=== PATIENT | male | born 1980 | race Caucasian/White ===

== ENCOUNTER 2017-01-28 16:34 | Inpatient (IN) | payer BC ==
[2017-01-28 16:59] VITALS: BMI 27.7
--- NOTE | 2017-01-28 17:27 | HP ---
COWS - Scale Resting Pulse: 0= [place] 80 or Below Sweatin= Chills/Flushing Restless Observation: 3= Extraneous Movement Pupil Size: 0= Normal to Room Light Bone or Joint Aches: 2= Severe Diffuse Aches Runny Nose/ Eye Tearin= Runny Nose/Eyes GI Upset > 30mins: 2= Nausea/Diarrhea Tremor Observation: 2= Slight Tremor Visible Yawning Observation: 0= None Anxiety or Irritability: 2=Irritable/Anxious Goose Flesh Skin: 3=Piloerection COWS Score: 17 Admission ROS S - HPI Chief Complaint: withdrawal sx last detox [facility] 12/11/16 Allergies/Adverse Reactions: Allergies Allergy/AdvReac Type Severity Reaction Status Date / Time No Known Allergies Allergy Verified 01/28/17 15:58 History of Present Illness: 36 years old male with long history of heroin nicotine dependence denies medical issue has depression denies suicidal denies homocidal is admitted to detox Exam Limitations: No Limitations - Ebola screening Have you traveled outside of the country in the last 21 days: No Have you had contact with anyone from an Ebola affected area: No Have you been sick,other than usual withdrawal symptoms: No Do you have a fever: No - Review of Systems Constitutional: Night Sweats, Changes in sleep, Weight Stable EENT: reports: Nose Congestion Respiratory: reports: No Symptoms reported Cardiac: reports: No Symptoms Reported GI: reports: Nausea, Poor Fluid Intake, Indigestion, Abdominal cramping : reports: Other (history of kidney stone 2010 resolved) Musculoskeletal: reports: Back Pain, Joint Pain, Muscle Pain, Neck Pain Integumentary: reports: No Symptoms Reported Neuro: reports: Tremors Endocrine: reports: No Symptoms Reported Hematology: reports: No Symptoms Reported Psychiatric: reports: Judgement Intact, Orientated x3, Depressed Other Systems: Reviewed and Negative Patient History - Patient Medical History Hx Anemia: No Hx Asthma: No Hx Chronic Obstructive Pulmonary Disease (COPD): No Hx Cancer: No Hx Cardiac Disorders: No Hx Congestive Heart Failure: No Hx Hypertension: No Hx Hypercholesterolemia: No Hx Pacemaker: No HX Cerebrovascular Accident: No Hx Seizures: No Hx Dementia: No Hx Diabetes: No Hx Gastrointestinal Disorders: Yes Hx Liver Disease: No Hx Genitourinary Disorders: No Hx Sexually Transmitted Disorders: No Hx Renal Disease (ESRD): No Hx Thyroid Disease: No Hx Human Immunodeficiency Virus (HIV): No Hx Hepatitis C: No Hx Depression: Yes Hx Suicide Attempt: No Hx Bipolar Disorder: No Hx Schizophrenia: No - Patient Surgical History Past Surgical History: No - PPD History Previous Implant?: Yes Documented Results: Negative w/o proof Implanted On Prior [facility] Admission?: No PPD to be Administered?: Yes - Smoking Cessation Smoking history: Current every day smoker Have you smoked in the past 12 months: Yes Aproximately how many cigarettes per day: 20 Cigars Per Day: 0 Hx Chewing Tobacco Use: No Initiated information on smoking cessation: Yes 'Breaking Loose' booklet given: 01/28/17 - Substance & Tx. History Hx Alcohol Use: No Hx Substance Use: Yes Substance Use Type: Heroin Hx Substance Use Treatment: Yes (12/11/16-12/28/16 detox [facility]) - Substances Abused Heroin Route: Inhalation Frequency: Daily Amount used: 20 bags Age of first use: 19 Date of Last Use: 01/27/17 Family Disease History - Family Disease History Family History: Unremarkable Admission Physical Exam S - Vital Signs Vital Signs: Vital Signs - 24 hr 01/28/17 16:58 Temperature 97.4 F L Pulse Rate 79 Respiratory 20 Rate Blood Pressure 138/86 - Physical General Appearance: Yes: Appropriately Dressed, Moderate Distress, Tremorous, Irritable, Sweating, Anxious HEENTM: Yes: Hearing grossly Normal, Normal ENT Inspection, Normocephalic, Normal Voice Respiratory: Yes: Chest Non-Tender, Lungs Clear, Normal Breath Sounds, No Respiratory Distress, No Accessory Muscle Use Neck: Yes: Supple, Trachea in good position Cardiology: Yes: Regular Rhythm, Regular Rate, S1, S2 Abdominal: Yes: Non Tender, Soft Genitourinary: Yes: Within Normal Limits Back: Yes: Normal Inspection Musculoskeletal: Yes: full range of Motion, Gait Steady, Back pain, Muscle Pain Extremities: Yes: Normal Inspection (multiple tattoo, chronic redness spots), Normal Range of Motion, Non-Tender, Tremors Neurological: Yes: Fully Oriented, Alert, Motor Strength 5/5, Normal Response, Depressed Affect Integumentary: Yes: Warm Lymphatic: Yes: Within Normal Limits - Diagnostic (1) Opioid dependence with withdrawal Current Visit: Yes Status: Acute (2) GERD (gastroesophageal reflux disease) Current Visit: Yes Status: Chronic Qualifiers: Esophagitis presence: without esophagitis Qualified Code(s): K21.9 - Gastro-esophageal reflux disease without esophagitis (3) Nicotine dependence Current Visit: Yes Status: Acute Qualifiers: Nicotine product type: cigarettes Substance use status: in withdrawal Qualified Code(s): F17.213 - Nicotine dependence, cigarettes, with withdrawal (4) Depression (emotion) Current Visit: Yes Status: Suspected Qualifiers: Depression Type: dysthymia Qualified Code(s): F34.1 - Dysthymic disorder Cleared for Admission [facility] - Detox or Rehab [facility] Level of Care: Medically Managed Detox Regimen/Protocol: Methadone [facility] Breath Alcohol Content Breath Alcohol Content: 0 Urine Drug Screen - Results Urine Drug Screen Results: DEVANTE-Cocaine, OPI-Opiates
[2017-01-28] MEDS ORDERED: MENTHOL/PHENOL 1 EACH UD MM PRN (17:30)
[2017-01-28] MEDS ORDERED: P-EPHED 60MG/TRIPROLIDI 2.5MG TABLET PO PRN (17:30)
[2017-01-28] MEDS ORDERED: MAGNESIUM HYDROX 2400MG/30ML ORAL SUSPENSION 30 ML CUP PO PRN (17:30)
[2017-01-28] MEDS ORDERED: MAG HYDROX/AL HYDROX/SIMETH 30 ML UNIT-DOSE CUP PO PRN (17:30)
[2017-01-28] MEDS ORDERED: guaiFENesin/D-METHORPHAN HB 10 ML UNIT-DOSE CUPS PO PRN (17:30)
[2017-01-28] MEDS ORDERED: MAGNESIUM CITRATE 300 ML BOTTLE PO PRN (17:30)
[2017-01-28] MEDS ORDERED: ACETAMINOPHEN 325 MG TABLET (FP) PO PRN (17:30)
[2017-01-28] MEDS ORDERED: LOPERAMIDE HCL 2 MG CAPSULE PO PRN (17:30)
[2017-01-28] MEDS ORDERED: diphenhydrAMINE HCL 50 MG CAPSULE PO PRN (17:30)
[2017-01-28] MEDS ORDERED: METHADONE HCL 10 MG TABLET (FOR DETOX USE ONLY) PO ONE ×2 (18:30→23:00)
[2017-01-28] MEDS: diazePAM 5 MG TABLET PO PRN (18:41)
[2017-01-28] MEDS: NICOTINE POLACRILEX 4 MG GUM BC PRN (20:07)
[2017-01-28] MEDS: RANITIDINE HCL 150 MG TABLET (FP) PO SCH (22:08)
[2017-01-28] MEDS: THIAMINE HCL 100 MG TABLET (FP) PO SCH (22:09)
[2017-01-28 22:25] LABS: URINE APPEARANCE CLEAR; URINE BILIRUBIN NEGATIVE (NEGATIVE); URINE BLOOD NEGATIVE (NEGATIVE); URINE COLOR LTYELLOW; URINE GLUCOSE (UA) NEGATIVE (NEGATIVE); URINE KETONE NEGATIVE (NEGATIVE); URINE LEUK ESTERASE NEGATIVE (NEGATIVE); URINE NITRITE NEGATIVE (NEGATIVE); URINE PROTEIN NEGATIVE (NEGATIVE); URINE UROBILINOGEN NEGATIVE E.U./dl (0.2-1.0)
--- NOTE | 2017-01-29 09:16 | CONSULT ---
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 Substance Abuse History: Consistent with self-report of recent use of cocaine/ heroin use on 01/27/17.Patient admits to spending 200 dollars/day on heroin ( onset of abuse at age 25) via snorting .Sporadic recreational use of cocaine ( snorting) since age 16.Mr Arias reportedly smokes one pack of cigarettes daily (started at age 9). Medical History: Benign.Patient endorses good general health. Psychiatric History: No reported history of psychiatric hospitalizations.Mr Arias reports past treatment with psychostimulants (ritalin at age 10 and adderall in recent years until he stopped a few months ago).Was diagnosed with ADHD.Used to see a psychiatrist in his local town of [facility].Patient denies history of suicide attempts. Physical/Sexual Abuse/Trauma History: Patient denies. Additional Comment: Urine Drug Screen Results: positive for cocaine and opiates. Mental Status Exam - Mental Status Exam Alert and Oriented to: Time, Place, Person Cognitive Function: Good Patient Appearance: Well Groomed (tattoos on both forearms) Mood: Hopeful Affect: Appropriate, Normal Range Patient Behavior: Appropriate (well mannered), Cooperative Speech Pattern: Clear, Appropriate Voice Loudness: Normal Thought Process: Goal Oriented Thought Disorder: Not Present Hallucinations: Denies Suicidal Ideation: Denies Homicidal Ideation: Denies Insight/Judgement: Fair Sleep: Poorly Appetite: Good Muscle strength/Tone: Normal Gait/Station: Other Psychiatric Findings - Problem List ([place] 1, 2,3) (1) Opioid dependence with withdrawal Current Visit: Yes Status: Acute (2) Cocaine dependence Current Visit: Yes Status: Acute (3) Nicotine dependence Current Visit: Yes Status: Acute Qualifiers: Nicotine product type: cigarettes Substance use status: in withdrawal Qualified Code(s): F17.213 - Nicotine dependence, cigarettes, with withdrawal (4) ADHD (attention deficit hyperactivity disorder) Current Visit: No Status: Chronic Comment: By history.Non-adherent to medications. (5) GERD (gastroesophageal reflux disease) Current Visit: Yes Status: Chronic Qualifiers: Esophagitis presence: without esophagitis Qualified Code(s): K21.9 - Gastro-esophageal reflux disease without esophagitis (6) Insomnia Current Visit: Yes Status: Acute - Initial Treatment Plan Initial Treatment Plan: Psychoeducation provided in this initial session.Detoxification in progress.[facility] report is reviewed and appreciated.Patient indicates previous treatment (effective) with trazodone 100 mg/hs to address insomnia.Wishes to resume same at [address].Made aware of the potential for priapism and instructed to stop that drug/seek immediate medical attention if occurrence of erectile abnormalities (painful/prolonged erection) .Information is aknowledged by the patient.Consent (verbal) given.Trazodone 100 mg po hs.Ordered.Monitor progress.
[2017-01-29] MEDS ORDERED: LIDOCAINE VISCOUS 2% ORAL/TOP 20 ML UNIT-DOSE CUP MM PRN (09:33)
--- NOTE | 2017-01-29 09:35 | PN ---
[facility] COWS - Scale Resting Pulse: 0= [place] 80 or Below Sweatin= Chills/Flushing Restless Observation: 1= Difficult to Sit Still Pupil Size: 0= Normal to Room Light Bone or Joint Aches: 2= Severe Diffuse Aches Runny Nose/ Eye Tearin= Nasal Congestion GI Upset > 30mins: 2= Nausea/Diarrhea Tremor Observation of Outstretched Hands: 2= Slight Tremor Visible Yawning Observation: 1= 1-2x During Session Anxiety or Irritability: 2=Irritable/Anxious Goose Flesh Skin: 3=Piloerection COWS Score: 15 BHS Progress Note (SOAP) Subjective: Interrupted sleep, Body Aches, Lower Back Ache, Sweating, Diarrhea, Oral discomfort (pt. reports that tbhis is chronic condition and that he is awaiting dental surgery to correct). Objective: PT. A & O X 3, OBSERVED AMBULATING ON UNIT. NO ACUTE DISTRESS. PT. DENIES CHEST PAIN. 01/29/17 09:37 Vital Signs Temperature 96.3 F L 01/29/17 09:01 Pulse Rate 79 01/29/17 09:01 Respiratory Rate 16 01/29/17 09:01 Blood Pressure 124/84 01/29/17 09:01 O2 Sat by Pulse Oximetry (%) Laboratory Tests 01/28/17 21:15 Urine Color Ltyellow Urine Appearance Clear Urine pH 6.0 Urine Protein Negative Urine Glucose (UA) Negative Urine Ketones Negative Urine Blood Negative Urine Nitrite Negative Urine Bilirubin Negative Urine Urobilinogen Negative Ur Leukocyte Esterase Negative US RESULTS NOTED. OTHER LAB RESULTS PENDING. Assessment: 01/29/17 09:38 WITHDRAWAL SYMPTOMS. Plan: CONTINUE DETOX. VISCOUS LIDOCAINE SWISH AND SPIT PRN / GARGLE WITH WARM SALT WATER FOR ORAL PAIN. PT. ADVISED TO FOLLOW-UP WITH DENTIST FOR DENTAL EXAM AFTER DISCHARGE FROM DETOX.
[2017-01-29] MEDS ORDERED: METHADONE HCL 10 MG TABLET (FOR DETOX USE ONLY) PO ONE (10:00)
[2017-01-29 10:03] LABS: MCH 29.2 pg (25.7-33.7); MCHC 33.4 g/dl (32.0-35.9); MEAN CELL VOLUME 87.4 fl (80-96); MEAN PLT VOLUME 7.7 fl (7.5-11.1); PLATELET COUNT 239 K/MM3 (134-434); RDW 14.4 % (11.9-15.9); WHITE BLOOD COUNT 8.5 K/mm3 (4.0-10.0)
[2017-01-29] MEDS: RANITIDINE HCL 150 MG TABLET (FP) PO SCH ×2 (10:05→22:04)
[2017-01-29] MEDS: PRENATAL VITAMINS W/ FOLIC ACID TABLET (FP) PO SCH (10:05)
[2017-01-29] MEDS: diazePAM 5 MG TABLET PO PRN ×4 (10:06→22:03)
[2017-01-29 10:12] LABS: ANION GAP 5 (8-16); CALCIUM 8.2 mg/dL (8.5-10.1); CO2 28 mmol/L (21-32); GLUCOSE,RANDOM 88 mg/dL (74-106)
[2017-01-29 10:17] LABS: ALK PHOS 78 U/L (45-117); BILIRUBIN,TOTAL 0.2 mg/dL (0.2-1.0); CREATININE 0.8 mg/dL (0.7-1.3); SGOT/AST 16 U/L (15-37); SGPT/ALT 23 U/L (12-78); TOT PROT 5.8 g/dl (6.4-8.2)
[2017-01-29] MEDS: NICOTINE 21 MG/24 HOURS TOPICAL PATCH TD PRN (12:30)
[2017-01-29] MEDS: NICOTINE POLACRILEX 4 MG GUM BC PRN ×2 (12:30→18:12)
--- NOTE | 2017-01-29 16:22 | PN ---
[facility] Progress Note Note: Received report from Ms. Remy Ratliff RN that patient had been found to be smoking a cigarette in his room. When discussing matter with patient, he admitted that he opened his bedroom window after he saw a person in the parking lot of the building smoking. He then asked that person to "throw a cigarette up to him so that he could take a few drags." After discussion and consultation with Dr. Ervin MD, Counselor Brittany Sawyer, and Ms. Remy Ratliff RN, patient given Final Warning that if is he is caught smoking on unit again at any time during the remainder of admission, he will immediately be discharged from the unit. Patient verbalized understanding of warning and agreed to comply with Unit rules / regulations, including No-Smoking policy, going forward. Patient currently prescribed daily Nicoderm Patch and Nicorette Gum PRN to help reduce nicotine cravings. Member of Engineering staff came to patient's room to inspect bedroom window to ensure that it is not broken and functioning properly. Parish Nunez NP
--- NOTE | 2017-01-29 17:17 | EKG ---
Test Reason : Blood Pressure : / mmHG Vent. Rate : 071 BPM Atrial Rate : 071 BPM P-R Int : 140 ms QRS Dur : 088 ms QT Int : 378 ms P-R-T Axes : 040 057 040 degrees QTc Int : 410 ms NORMAL SINUS RHYTHM NORMAL ECG NO PREVIOUS ECGS AVAILABLE Confirmed by NO CARROLL MD ([id number]) on 01/29/2017 5:17:18 PM Referred By: Confirmed By:NO CARROLL MD
[2017-01-29] MEDS: traZODone HCL 100 MG TABLET (FP) PO SCH (22:04)
[2017-01-29] MEDS: THIAMINE HCL 100 MG TABLET (FP) PO SCH (22:04)
[2017-01-30] MEDS ORDERED: METHADONE HCL 5 MG TABLET (FOR DETOX USE ONLY) PO ONE (10:00)
[2017-01-30] MEDS: diazePAM 5 MG TABLET PO PRN ×4 (10:01→22:05)
[2017-01-30] MEDS: RANITIDINE HCL 150 MG TABLET (FP) PO SCH ×2 (10:01→22:04)
[2017-01-30] MEDS: NICOTINE 21 MG/24 HOURS TOPICAL PATCH TD PRN (10:01)
[2017-01-30] MEDS: PRENATAL VITAMINS W/ FOLIC ACID TABLET (FP) PO SCH (10:01)
[2017-01-30] MEDS: NICOTINE POLACRILEX 4 MG GUM BC PRN (10:01)
--- NOTE | 2017-01-30 10:31 | PN ---
S COWS - Scale Resting Pulse: 0= [place] 80 or Below Sweatin= Chills/Flushing Restless Observation: 1= Difficult to Sit Still Pupil Size: 0= Normal to Room Light Bone or Joint Aches: 2= Severe Diffuse Aches Runny Nose/ Eye Tearin= None GI Upset > 30mins: 1= Stomach Cramp Tremor Observation of Outstretched Hands: 0= None Yawning Observation: 2= >3x During Session Anxiety or Irritability: 2=Irritable/Anxious Goose Flesh Skin: 3=Piloerection COWS Score: 12 BHS Progress Note (SOAP) Subjective: Fatigue, Sweating. Objective: PT. A & O X 3, OBSERVED AMBULATING ON UNIT. NO ACUTE DISTRESS. 01/30/17 10:27 Vital Signs Temperature 97.1 F L 01/30/17 09:02 Pulse Rate 75 01/30/17 09:02 Respiratory Rate 18 01/30/17 09:02 Blood Pressure 134/95 01/30/17 09:02 O2 Sat by Pulse Oximetry (%) Laboratory Tests 01/28/17 01/29/17 01/29/17 21:15 06:30 06:30 WBC 8.5 RBC 4.52 Hgb 13.2 Hct 39.6 MCV 87.4 MCH 29.2 MCHC 33.4 RDW 14.4 Plt Count 239 MPV 7.7 Sodium 142 Potassium 4.6 Chloride 109 H Carbon Dioxide 28 Anion Gap 5 L BUN 22 H Creatinine 0.8 Creat Clearance w eGFR > 60 Random Glucose 88 Calcium 8.2 L Total Bilirubin 0.2 AST 16 ALT 23 Alkaline Phosphatase 78 Total Protein 5.8 L Albumin 3.0 L Urine Color Ltyellow Urine Appearance Clear Urine pH 6.0 Ur Specific [place] 1.020 Urine Protein Negative Urine Glucose (UA) Negative Urine Ketones Negative Urine Blood Negative Urine Nitrite Negative Urine Bilirubin Negative Urine Urobilinogen Negative Ur Leukocyte Esterase Negative RPR Titer 01/29/17 06:30 WBC RBC Hgb Hct MCV MCH MCHC RDW Plt Count MPV Sodium Potassium Chloride Carbon Dioxide Anion Gap BUN Creatinine Creat Clearance w eGFR Random Glucose Calcium Total Bilirubin AST ALT Alkaline Phosphatase Total Protein Albumin Urine Color Urine Appearance Urine pH Ur Specific [place] Urine Protein Urine Glucose (UA) Urine Ketones Urine Blood Urine Nitrite Urine Bilirubin Urine Urobilinogen Ur Leukocyte Esterase RPR Titer Nonreactive LABS NOTED. Assessment: 01/30/17 10:28 WITHDRAWAL SYMPTOMS. Plan: CONTINUE DETOX. INCREASE PO FLUID INTAKE.
[2017-01-30] MEDS: traZODone HCL 100 MG TABLET (FP) PO SCH (22:04)
[2017-01-30] MEDS: THIAMINE HCL 100 MG TABLET (FP) PO SCH (22:04)
[2017-01-31] MEDS ORDERED: METHADONE HCL 5 MG TABLET (FOR DETOX USE ONLY) PO ONE (10:00)
[2017-01-31] MEDS ORDERED: METHADONE HCL 10 MG TABLET (FOR DETOX USE ONLY) PO ONE (10:00)
[2017-01-31] MEDS: diazePAM 5 MG TABLET PO PRN ×2 (10:05→14:12)
[2017-01-31] MEDS: PRENATAL VITAMINS W/ FOLIC ACID TABLET (FP) PO SCH (10:05)
[2017-01-31] MEDS: RANITIDINE HCL 150 MG TABLET (FP) PO SCH ×2 (10:06→22:05)
[2017-01-31] MEDS: NICOTINE 21 MG/24 HOURS TOPICAL PATCH TD PRN (10:08)
[2017-01-31] MEDS: NICOTINE POLACRILEX 4 MG GUM BC PRN (10:09)
--- NOTE | 2017-01-31 11:13 | PN ---
BHS Progress Note (SOAP) Subjective: Lower Back Ache. Objective: PT. A & O X 3, OBSERVED AMBULATING ON UNIT. NO ACUTE DISTRESS. 01/31/17 11:09 Vital Signs Temperature 96.5 F L 01/31/17 09:39 Pulse Rate 96 H 01/31/17 09:39 Respiratory Rate 20 01/31/17 09:39 Blood Pressure 124/93 01/31/17 09:39 O2 Sat by Pulse Oximetry (%) Laboratory Tests 01/28/17 01/29/17 01/29/17 21:15 06:30 06:30 WBC 8.5 RBC 4.52 Hgb 13.2 Hct 39.6 MCV 87.4 MCH 29.2 MCHC 33.4 RDW 14.4 Plt Count 239 MPV 7.7 Sodium 142 Potassium 4.6 Chloride 109 H Carbon Dioxide 28 Anion Gap 5 L BUN 22 H Creatinine 0.8 Creat Clearance w eGFR > 60 Random Glucose 88 Calcium 8.2 L Total Bilirubin 0.2 AST 16 ALT 23 Alkaline Phosphatase 78 Total Protein 5.8 L Albumin 3.0 L Urine Color Ltyellow Urine Appearance Clear Urine pH 6.0 Ur Specific [place] 1.020 Urine Protein Negative Urine Glucose (UA) Negative Urine Ketones Negative Urine Blood Negative Urine Nitrite Negative Urine Bilirubin Negative Urine Urobilinogen Negative Ur Leukocyte Esterase Negative RPR Titer 01/29/17 06:30 WBC RBC Hgb Hct MCV MCH MCHC RDW Plt Count MPV Sodium Potassium Chloride Carbon Dioxide Anion Gap BUN Creatinine Creat Clearance w eGFR Random Glucose Calcium Total Bilirubin AST ALT Alkaline Phosphatase Total Protein Albumin Urine Color Urine Appearance Urine pH Ur Specific [place] Urine Protein Urine Glucose (UA) Urine Ketones Urine Blood Urine Nitrite Urine Bilirubin Urine Urobilinogen Ur Leukocyte Esterase RPR Titer Nonreactive LABS NOTED. Assessment: 01/31/17 11:10 WITHDRAWAL SYMPTOMS. Plan: CONTINUE DETOX. INCREASE PO FLUID INTAKE. PATIENT REPORTS THAT HE IS GENERALLY FEELING WELL AND THAT CURRENT DETOX SYMPTOMS ARE MINIMAL. DETOX MEDICATION REGIMEN (METHADONE) MODIFIED SO THAT PATIENT MAY LEAVE 1 DAY EARLIER THAN ORIGINALLY SCHEDULED SO THAT HE MAY REGISTER FOR ADMISSION AT [facility].
[2017-01-31] MEDS ORDERED: hydrOXYzine PAMOATE 50 MG CAPSULE (FP) PO ONE (18:39)
[2017-01-31] MEDS: traZODone HCL 100 MG TABLET (FP) PO SCH (22:05)
[2017-01-31] MEDS: THIAMINE HCL 100 MG TABLET (FP) PO SCH (22:05)
[2017-02-01] MEDS ORDERED: METHADONE HCL 5 MG TABLET (FOR DETOX USE ONLY) PO ONE (06:00)
[2017-02-01 06:16] VITALS: BP 133/79; PULSE 69; TEMP 97.3
[2017-02-01] MEDS ORDERED: METHADONE HCL 10 MG TABLET (FOR DETOX USE ONLY) PO ONE (10:00)
--- NOTE | 2017-02-01 10:38 | DS ---
[facility] Detox Discharge Summary Admission Date: 01/28/17 Discharge Date: 02/01/17 - History Present History: Opioid Dependence Additional Comments: ADVISED PATIENT TO FOLLOW-UP FOR AFTERCARE AT [facility] ([place], [place]) DIRECTED. Pertinent Past History: Depression, GERD. - Physical Exam Results Vital Signs: Vital Signs Temperature 97.3 F L 02/01/17 06:15 Pulse Rate 69 02/01/17 06:15 Respiratory Rate 18 02/01/17 06:15 Blood Pressure 133/79 02/01/17 06:15 O2 Sat by Pulse Oximetry (%) Pertinent Admission Physical Exam Findings: WITHDRAWAL SYMPTOMS. Laboratory Tests 01/28/17 01/29/17 01/29/17 21:15 06:30 06:30 WBC 8.5 RBC 4.52 Hgb 13.2 Hct 39.6 MCV 87.4 MCH 29.2 MCHC 33.4 RDW 14.4 Plt Count 239 MPV 7.7 Sodium 142 Potassium 4.6 Chloride 109 H Carbon Dioxide 28 Anion Gap 5 L BUN 22 H Creatinine 0.8 Creat Clearance w eGFR > 60 Random Glucose 88 Calcium 8.2 L Total Bilirubin 0.2 AST 16 ALT 23 Alkaline Phosphatase 78 Total Protein 5.8 L Albumin 3.0 L Urine Color Ltyellow Urine Appearance Clear Urine pH 6.0 Ur Specific [place] 1.020 Urine Protein Negative Urine Glucose (UA) Negative Urine Ketones Negative Urine Blood Negative Urine Nitrite Negative Urine Bilirubin Negative Urine Urobilinogen Negative Ur Leukocyte Esterase Negative RPR Titer 01/29/17 06:30 WBC RBC Hgb Hct MCV MCH MCHC RDW Plt Count MPV Sodium Potassium Chloride Carbon Dioxide Anion Gap BUN Creatinine Creat Clearance w eGFR Random Glucose Calcium Total Bilirubin AST ALT Alkaline Phosphatase Total Protein Albumin Urine Color Urine Appearance Urine pH Ur Specific [place] Urine Protein Urine Glucose (UA) Urine Ketones Urine Blood Urine Nitrite Urine Bilirubin Urine Urobilinogen Ur Leukocyte Esterase RPR Titer Nonreactive LABS NOTED. - Treatment Hospital Course: Detox Protocol Followed, Detoxed Safely, Responded well, Discharged Condition Good, Rehab Referral Accepted Patient has Accepted a Rehab Referral to: [facility] ([place], [place]). - Medication Discharge Medications: Ambulatory Orders Trazodone HCl 100 mg PO HS #30 tablet 01/29/17 - Diagnosis (1) Nicotine dependence Status: Chronic Qualifiers: Nicotine product type: cigarettes Substance use status: uncomplicated Qualified Code(s): F17.210 - Nicotine dependence, cigarettes, uncomplicated (2) Opioid dependence with withdrawal Status: Acute (3) GERD (gastroesophageal reflux disease) Status: Chronic Qualifiers: Esophagitis presence: without esophagitis Qualified Code(s): K21.9 - Gastro-esophageal reflux disease without esophagitis (4) Depression (emotion) Status: Suspected Qualifiers: Depression Type: dysthymia Qualified Code(s): F34.1 - Dysthymic disorder - AMA Did Patient Leave Against Medical Advice: No
[2017-02-02] MEDS ORDERED: METHADONE HCL 5 MG TABLET (FOR DETOX USE ONLY) PO ONE (06:00)
== END 2017-02-01 08:43 | disposition home or self-care (01) | DRG 897 ==
LOC: YASAS 16:34 → Y3N 18:10
PROVIDERS: ADMIT Internal Medicine; ATTEND Internal Medicine
PROC: HZ2ZZZZ Detoxification Services for Substance Abuse Treatment (ICD-10-PCS; principal; 2017-02-01)
DX: F11.23 Opioid dependence with withdrawal (principal); F14.20 Cocaine dependence, uncomplicated; F17.210 Nicotine dependence, cigarettes, uncomplicated; F34.1 Dysthymic disorder; F90.9 Attention-deficit hyperactivity disorder, unspecified type; G47.00 Insomnia, unspecified; K21.9 Gastro-esophageal reflux disease without esophagitis
CPT/HCPCS: 36415; 80053; 81003; 85027; 86593; 93005; 93010

== ENCOUNTER 2018-12-23 13:42 | Inpatient (IN) | payer OTHER ==
[2018-12-23 14:07] VITALS: BMI 28.7
--- NOTE | 2018-12-23 16:52 | HP ---
CIWA Score - Admission Criteria [facility]AS Guidelines: Admission for Medically Managed Detox: Requires at least one of the followin. CIWA greater than 12 2. Seizures within the past 24 hours 3. Delirium tremens within the past 24 hours 4. Hallucinations within the past 24 hours 5. Acute intervention needed for co occurring medical disorder 6. Acute intervention needed for co occurring psychiatric disorder 7. Severe withdrawal that cannot be handled at a lower level of care (continued vomiting, continued diarrhea, abnormal vital signs) requiring intravenous medication and/or fluids 8. Admission ROS [facility] Chief Complaint: rehab Allergies/Adverse Reactions: Allergies Allergy/AdvReac Type Severity Reaction Status Date / Time No Known Allergies Allergy Verified 12/23/18 13:52 History of Present Illness: Patient is a 38 yo male with hx of opioid and marijuana dependence is here seeking rehabilitation, self referred, patient report reports resume using heroin two weeks ago while on suboxone 8 mg BID. PMHX: GERD Psych: depression, insomnia and anxiety Denies SI/ HI Overdose x1 one year ago Denies hx of seizures or blackouts Last prison rehab at [facility] one year ago Others' Prescriptions Patient Name: Nick Arias Date: 1980 Address: [address] [place] [address] Sex: Male Rx Written Rx Dispensed Drug Quantity Days Supply Prescriber Name 12/12/2018 12/12/2018 buprenorphine-naloxone 8-2 mg sl film 56 Viry Wilder MD, George 11/14/2018 11/14/2018 buprenorphine-naloxone 8-2 mg sl film 56 Viry Wilder MD, George 10/17/2018 10/17/2018 buprenorphine-naloxone 8-2 mg sl film 56 Viry Wilder MD, George 09/19/2018 09/19/2018 suboxone 8 mg-2 mg sl film 56 Viry Wilder MD, Hayden 08/22/2018 08/22/2018 suboxone 8 mg-2 mg sl film 56 Viry Wilder MD, Hayden 07/25/2018 07/25/2018 suboxone 8 mg-2 mg sl film 56 Viry Wilder MD, Hayden 06/27/2018 06/27/2018 suboxone 8 mg-2 mg sl film 56 Viry Wilder MD, Hayden 05/30/2018 05/30/2018 suboxone 8 mg-2 mg sl film 56 28 MD Wilder George 05/02/2018 05/02/2018 suboxone 8 mg-2 mg sl film 56 28 MD Wilder George 04/04/2018 04/04/2018 suboxone 8 mg-2 mg sl film 56 28 MD Wilder George 03/07/2018 03/07/2018 suboxone 8 mg-2 mg sl film 56 28 MD Wilder George 02/22/2018 02/22/2018 suboxone 8 mg-2 mg sl film 56 28 MD Wilder George 01/25/2018 01/25/2018 suboxone 8 mg-2 mg sl film 56 28 MD Wilder George Exam Limitations: No Limitations - Ebola screening Have you traveled outside of the country in the last 21 days: No (N) Have you had contact with anyone from an Ebola affected area: No Do you have a fever: No - Review of Systems Constitutional: No Symptoms Reported EENT: reports: No Symptoms Reported Respiratory: reports: No Symptoms reported Cardiac: reports: No Symptoms Reported GI: reports: No Symptoms Reported : reports: No Symptoms Reported Musculoskeletal: reports: Joint Pain (chroninc left hip pain) Integumentary: reports: No Symptoms Reported Neuro: reports: No Symptoms reported Endocrine: reports: No Symptoms Reported Hematology: reports: No Symptoms Reported Psychiatric: reports: Orientated x3, Anxious Other Systems: Reviewed and Negative Patient History - Patient Medical History Hx Anemia: No Hx Asthma: No Hx Chronic Obstructive Pulmonary Disease (COPD): No Hx Cancer: No Hx Cardiac Disorders: No Hx Congestive Heart Failure: No Hx Hypertension: No Hx Hypercholesterolemia: No Hx Pacemaker: No HX Cerebrovascular Accident: No Hx Seizures: No Hx Dementia: No Hx Diabetes: No Hx Gastrointestinal Disorders: Yes (GERD) Hx Liver Disease: No Hx Genitourinary Disorders: No Hx Sexually Transmitted Disorders: No Hx Renal Disease (ESRD): No Hx Thyroid Disease: No Hx Human Immunodeficiency Virus (HIV): No Hx Hepatitis C: No Hx Depression: Yes Hx Suicide Attempt: No Hx Bipolar Disorder: No Hx Schizophrenia: No - Patient Surgical History Past Surgical History: No Hx Neurologic Surgery: No Hx Cataract Extraction: No Hx Cardiac Surgery: No Hx Lung Surgery: No Hx Breast Surgery: No Hx Breast Biopsy: No Hx Abdominal Surgery: No Hx Appendectomy: No Hx Cholecystectomy: No Hx Genitourinary Surgery: No Hx Section: No Hx Orthopedic Surgery: No Anesthesia Reaction: No - PPD History Previous Implant?: No Documented Results: Negative w/o proof Date: 01/30/17 PPD to be Administered?: Yes - Smoking Cessation Smoking history: Current every day smoker Have you smoked in the past 12 months: Yes Aproximately how many cigarettes per day: 20 Cigars Per Day: 0 Hx Chewing Tobacco Use: No Initiated information on smoking cessation: Yes 'Breaking Loose' booklet given: 12/23/18 - Substance & Tx. History Hx Alcohol Use: No Hx Substance Use: Yes Substance Use Type: Heroin, Marijuana Hx Substance Use Treatment: Yes - Substances abused Heroin Substance route: Inhalation Frequency: Daily Amount used: 1 BUNDLE Age of first use: 21 Date of last use: 12/23/18 Marijuana/Hashish Substance route: Smoking Frequency: 1-2 times per week Amount used: $20 Age of first use: 11 Date of last use: 12/15/18 Family Disease History - Family Disease History Family History: Denies Admission Physical Exam [facility] - Vital Signs Vital Signs: Vital Signs - 24 hr 12/23/18 13:58 Temperature 98.5 F Pulse Rate 75 Respiratory 18 Rate Blood Pressure 123/82 - Physical General Appearance: Yes: Nourished, Appropriately Dressed, Anxious HEENTM: Yes: EOMI, Hearing grossly Normal, Normal ENT Inspection, Normocephalic , Normal Voice, RHIANNA, Pharynx Normal, Tm's normal, Other (poor dentition) Respiratory: Yes: Chest Non-Tender, Lungs Clear, Normal Breath Sounds, No Respiratory Distress, No Accessory Muscle Use Neck: Yes: Within Normal Limits Breast: Yes: Breast Exam Deferred Cardiology: Yes: Regular Rhythm, Regular Rate Abdominal: Yes: Normal Bowel Sounds, Non Tender, Flat, Soft Genitourinary: Yes: Within Normal Limits Back: Yes: Normal Inspection Musculoskeletal: Yes: full range of Motion, Gait Steady, Pelvis Stable Extremities: Yes: Normal Capillary Refill, Normal Inspection, Normal Range of Motion, Non-Tender Neurological: Yes: policy specialist II-XII NML intact, Fully Oriented, Alert, Motor Strength 5/5, Depressed Affect Integumentary: Yes: Normal Color, Dry, Warm Lymphatic: Yes: Within Normal Limits - Diagnostic (1) Opioid dependence on agonist therapy Current Visit: Yes Status: Chronic Comment: on suboxone 8mg bid (2) Marijuana abuse Current Visit: Yes Status: Acute (3) GERD (gastroesophageal reflux disease) Current Visit: Yes Status: Chronic Qualifiers: Esophagitis presence: without esophagitis Qualified Code(s): K21.9 - Gastro -esophageal reflux disease without esophagitis (4) Nicotine dependence Current Visit: Yes Status: Chronic Qualifiers: Nicotine product type: cigarettes Substance use status: uncomplicated Qualified Code(s): F17.210 - Nicotine dependence, cigarettes, uncomplicated (5) Depression (emotion) Current Visit: Yes Status: Suspected Qualifiers: Depression Type: dysthymia Qualified Code(s): F34.1 - Dysthymic disorder Breathalyzer - Breathalyzer Breathalyzer: 0 Urine Drug Screen - Test Device Lot number: [id number] Expiration date: 09/18/20 - Control Is test valid?: Yes - Results Drug screen NEGATIVE: No Urine drug screen results: THC-Marijuana, FEN-Fentanyl, MOP-Opiates, BUP- Suboxone Inpatient Rehab Admission - Rehab Decision to Admit Inpatient rehab admission?: Yes - Initial Determination Are CD services needed?: Yes Free of communicable disease: Yes Not in need of hospitalization: Yes - Rehab Admission Criteria Previous failed treatment: Yes Poor recovery environment: Yes Comorbidities: Yes Lacks judgement: Yes Patient is meeting Inpatient Rehab admission criteria:: Yes
[2018-12-23] MEDS ORDERED: hydrOXYzine PAMOATE 25 MG CAPSULE (FP) PO PRN (17:16)
[2018-12-23] MEDS ORDERED: LOPERAMIDE HCL 2 MG CAPSULE PO PRN (17:16)
[2018-12-23] MEDS ORDERED: IBUPROFEN 400 MG TABLET (FP) PO PRN (17:16)
[2018-12-23] MEDS ORDERED: P-EPHED 60MG/TRIPROLIDI 2.5MG TABLET PO PRN (17:16)
[2018-12-23] MEDS ORDERED: NICOTINE POLACRILEX 2 MG GUM BC PRN (17:16)
[2018-12-23] MEDS ORDERED: ACETAMINOPHEN 325 MG TABLET (FP) PO PRN (17:16)
[2018-12-23] MEDS ORDERED: MAG HYDROX/AL HYDROX/SIMETH 30 ML UNIT-DOSE CUP PO PRN (17:16)
[2018-12-23] MEDS ORDERED: MAGNESIUM HYDROX 2400MG/30ML ORAL SUSPENSION 30 ML CUP PO PRN (17:16)
[2018-12-23] MEDS ORDERED: MENTHOL/PHENOL 1 EACH UD MM PRN (17:16)
[2018-12-23] MEDS ORDERED: guaiFENesin 200 MG/10 ML 10 ML UNIT-DOSE CUPS PO PRN (17:16)
[2018-12-23] MEDS ORDERED: MAGNESIUM CITRATE 300 ML BOTTLE PO PRN (17:16)
[2018-12-23] MEDS ORDERED: TUBERCULIN PPD 5 TU/0.1ML VIAL ID ONE ×2 (20:20→22:12)
[2018-12-23] MEDS: BUPRENORPHINE/NALOXONE 8 MG/2 MG FILM PACKET SL SCH (21:59)
[2018-12-23] MEDS ORDERED: MELATONIN 5 MG TABLETS PO PRN (22:00)
[2018-12-23] MEDS ORDERED: THIAMINE HCL 100 MG TABLET (FP) PO SCH (22:00)
[2018-12-24 00:38] LABS: PH,URINE 5.5 (5.0-8.0); URINE APPEARANCE CLEAR; URINE BILIRUBIN NEGATIVE (NEGATIVE); URINE COLOR YELLOW; URINE GLUCOSE (UA) NEGATIVE (NEGATIVE); URINE KETONE TRACE (NEGATIVE); URINE LEUK ESTERASE NEGATIVE (NEGATIVE); URINE NITRITE NEGATIVE (NEGATIVE); URINE PROTEIN NEGATIVE (NEGATIVE); URINE UROBILINOGEN 0.2 mg/dL (0.2-1.0)
[2018-12-24 06:34] VITALS: BP 101/66; PULSE 67; TEMP 98.4
[2018-12-24] MEDS ORDERED: PRENATAL VITAMINS W/ FOLIC ACID TABLET (FP) PO SCH (10:00)
[2018-12-24] MEDS ORDERED: NICOTINE 14 MG/24 HOURS TOPICAL PATCH TD SCH (10:00)
[2018-12-24] MEDS: BUPRENORPHINE/NALOXONE 8 MG/2 MG FILM PACKET SL SCH (10:28)
[2018-12-24 11:00] LABS: ALBUMIN 3.4 g/dl (3.4-5.0); BILIRUBIN,TOTAL 0.3 mg/dL (0.2-1); CALCIUM 8.6 mg/dL (8.5-10.1); CREATININE 0.8 mg/dL (0.55-1.3); POTASSIUM 4.9 mmol/L (3.5-5.1); TOT PROT 6.2 g/dl (6.4-8.2)
[2018-12-24 11:02] LABS: HEMATOCRIT 42.7 % (35.4-49); HEMOGLOBIN 14.2 GM/dL (11.7-16.9); MCH 29.6 pg (25.7-33.7); MCHC 33.2 g/dl (32.0-35.9); MEAN CELL VOLUME 89.1 fl (80-96); MEAN PLT VOLUME 7.8 fl (7.5-11.1); PLATELET COUNT 266 K/MM3 (134-434); RBC 4.79 M/mm3 (4.00-5.60); WHITE BLOOD COUNT 6.8 K/mm3 (4.0-10.0)
--- NOTE | 2018-12-24 13:16 | CONSULT ---
[facility] Psychiatric Consult - Data Date of interview: 12/24/18 Admission source: [facility] Identifying data: Readmission to [facility] for this 36 y/o male, directly sent to [address] for rehabilitative care aiming at preservation of sobriety + management of co-morbidities (heroin/cocaine/ cannabis dependence + bipolar disorder). 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 Substance Abuse History: Discussed in this session. Details in current [facility] report as follows : Smoking history: Current every day smoker. Have you smoked in the past 12 months: Yes. Aproximately how many cigarettes per day: 20. Cigars Per Day: 0. Hx Chewing Tobacco Use: No. Initiated information on smoking cessation: Yes. 'Breaking Loose' booklet given: 12/23/18. - Substance & Tx. History. Hx Alcohol Use: No. Hx Substance Use: Yes. Substance Use Type : Heroin, Marijuana. Hx Substance Use Treatment: Yes. - Substances abused. * * Heroin. Substance route: Inhalation. Frequency: Daily. Amount used: 1 BUNDLE. Age of first use: 21. Date of last use: 12/23/18. Marijuana/ Hashish. Substance route: Smoking. Frequency: 1-2 times per week. Amount used : $20. Age of first use: 11. Date of last use: 12/15/18 Medical History: GERD. Patient endorses good general health in this interview. Psychiatric History: Patient denies history of psychiatric hospitalizations. Mr Arias reports past treatment with psychostimulants (ritalin at age 10 and adderall in recent years until he stopped a few months ago). Diagnosed with ADHD during adolescence. Patient is currently seeing a psychiatrist for medication management under the diagnosis of Major Depressive Disorder. Has monthly sessions with the psychiatrist at the [facility] in [place] [facility]. Medications : trazodone 150 mg/hs + duloxetine 60 mg/day (verified via contact with [facility] # [id number] at [phone]). Patient reports optimal adherence to his medications. Mr Arias denies history of suicide attempts. Patient is on suboxone maintenance. Physical/Sexual Abuse/Trauma History: No history of abuse. Additional Comment: Urine drug screen results: THC-Marijuana, FEN-Fentanyl, MOP- Opiates, BUP-Suboxone. Noted. Mental Status Exam - Mental Status Exam Alert and Oriented to: Time, Place, Person Cognitive Function: Good Patient Appearance: Well Groomed Mood: Hopeful, Euthymic Affect: Appropriate, Normal Range Patient Behavior: Appropriate, Cooperative Speech Pattern: Clear Voice Loudness: Normal Thought Process: Intact, Goal Oriented Thought Disorder: Not Present Hallucinations: Denies Suicidal Ideation: Denies Homicidal Ideation: Denies Insight/Judgement: Fair Sleep: Poorly, Difficulty falling asleep Appetite: Good Muscle strength/Tone: Normal Gait/Station: Normal Psychiatric Findings - Problem List ([place] 1, 2,3) (1) Depressive disorder Current Visit: Yes Status: Chronic (2) Opioid dependence on agonist therapy Current Visit: Yes Status: Chronic Comment: on suboxone 8mg bid (3) Marijuana abuse Current Visit: Yes Status: Chronic (4) Cocaine dependence Current Visit: Yes Status: Chronic (5) Nicotine dependence Current Visit: Yes Status: Chronic Qualifiers: Nicotine product type: cigarettes Substance use status: uncomplicated Qualified Code(s): F17.210 - Nicotine dependence, cigarettes, uncomplicated (6) Insomnia Current Visit: Yes Status: Chronic - Initial Treatment Plan Initial Treatment Plan: Psychoeducation. Sleep hygiene. Support. NA meetings. Motivational counseling. Medications : duloxetine 60 mg po daily + trazodone 150 mg po hs. Side effects/benefits of both drugs are discussed with the patient. Risk of priapism, suicidal ideation and sexual dysfinction are brought to the attention of patient. He denies any history of adverse and he insists on resuming these drugs. Observation.
--- NOTE | 2018-12-24 15:33 | PN ---
[facility] Progress Note Note: Asked to see Mr. Arias because he was requesting his morning dose of suboxone. Upon arrival I was told that Mr. Arias had yelled at the nurse, "Do your damn job." Mr. Arias was angry because the nurse could provide the morning dose and needed to notify a provider for a one time order. I went in to assess who was tired and reported experiencing withdrawal symptoms. After assessing him and assuring him I told him that I would put an order in for the suboxone and he could still take his evening dose. Then I asked Mr. Arias not to yell at the nurses. Mr. Arias told me that he would yell at the nurses if i wanted to because we worked for him. I explained that it was our responsibility to take care of him, but not to take abuse. He raised his voice and told me that yelling at the nurse was not abuse. I asked him to lower his voice. He told me he would yell if he wanted to and if I did not like it I could leave the room. At that point, I did leave the room. I notified the Counselor's miller supervisor of the incident.
[2018-12-24] MEDS ORDERED: BUPRENORPHINE/NALOXONE 8 MG/2 MG FILM PACKET SL ONE (15:45)
--- NOTE | 2018-12-24 17:51 | PN ---
[facility] Progress Note Note: discharge note from rehab. Pt states rehab is not for him. Pt was admitted yesterday for rehab from heroin/ THC use. Pt is on suboxone and has a PCP who is prescribing this medication. Pt has f/u and does not need medications from us.
[2018-12-24] MEDS ORDERED: traZODone HCL 50 MG TABLET (FP) PO SCH (22:00)
[2018-12-25] MEDS ORDERED: DULoxetine HCL 60 MG CAPSULE.DR PO SCH (10:00)
== END 2018-12-24 17:35 | disposition left against medical advice (07) | DRG 894 ==
LOC: YASAS 13:42 → Y3W 17:20
PROVIDERS: ADMIT Neuromusculoskeletal Medicine & OMM; ATTEND Neuromusculoskeletal Medicine & OMM
PROC: HZ42ZZZ Group Counseling for Substance Abuse Treatment, Cognitive-Behavioral (ICD-10-PCS; principal; 2018-12-23)
DX: F11.20 Opioid dependence, uncomplicated (principal); F12.20 Cannabis dependence, uncomplicated; F17.210 Nicotine dependence, cigarettes, uncomplicated; F32.9 Major depressive disorder, single episode, unspecified; G47.00 Insomnia, unspecified; K21.9 Gastro-esophageal reflux disease without esophagitis
CPT/HCPCS: 36415; 80053; 81003; 85027; 86593